=== PATIENT | male | born 1975 | race Caucasian/White ===

== ENCOUNTER 2017-05-25 13:10 | Emergency (ER) | payer SELFPAY ==
[~2017-05-25] VITALS: Ht 185.4 cm; Wt 135.2 kg
[~2017-05-25 13:10] MED LIST: ANTIFUNGAL15 G1 TP; ELIMITE 5% CREA60 GM TP; GEMFIBROZIL600 MG PO; HYDROXYZINE HCL25 MG PO; MEDROL DOSEPAK4 MG PO
[2017-05-25] MEDS ORDERED: VIBRAMYCIN100 MG PO (16:02)
[2017-05-25] MEDS ORDERED: ULTRAM50 MG PO (17:12)
[2017-05-25 17:14] VITALS: BP 129/90
== END 2017-05-25 17:15 | disposition home or self-care (01) ==
LOC: EME 13:10
DX: L05.01 Pilonidal cyst with abscess (principal); S93.602A Unspecified sprain of left foot, initial encounter; V48.4XXA Person boarding or alighting a car injured in noncollision transport accident, initial encounter; F17.200 Nicotine dependence, unspecified, uncomplicated
CPT/HCPCS: 72220; 73630; 99281; 99283

== ENCOUNTER 2017-07-10 | Emergency (ER) | payer SELFPAY ==
[~2017-07-10] VITALS: Ht 185.4 cm; Wt 136.4 kg
[~2017-07-10] MED LIST changes: +ULTRAM50 MG PO; +VIBRAMYCIN100 MG PO
[2017-07-10] MEDS ORDERED: BACTRIM,SEPT1 TABLET PO (00:31)
[2017-07-10 00:47] VITALS: BP 130/78
== END 2017-07-10 00:48 | disposition home or self-care (01) ==
LOC: EME
DX: L02.01 Cutaneous abscess of face (principal)
CPT/HCPCS: 99281; 99283

== ENCOUNTER 2017-12-01 21:01 | Emergency (ER) | payer BC ==
[~2017-12-01] VITALS: Ht 185.4 cm; Wt 122.8 kg
[~2017-12-01 21:01] MED LIST changes: +BACTRIM,SEPT1 TABLET PO
[2017-12-01 21:53] LABS: APPEARANCE CLEAR ((CLEAR)); BILIRUBIN NEGATIVE; BLOOD NEGATIVE; COLOR STRAW ((YELLOW)); GLUCOSE (STRIP) >=500; KETONES NEGATIVE; LEUKOCYTES NEGATIVE; NITRITE NEGATIVE; PROTEIN (STRIP) NEGATIVE; SPECIFIC GRAVITY 1.033 (1.000-1.030); UCUL ADDED? NO; UROBILINOGEN 0.2 MG/DL (0.2-1.0)
[2017-12-01] MEDS ORDERED: CLEOCIN300 MG PO (22:15)
[2017-12-01] MEDS ORDERED: PERCOCET 5/31 TABLET PO (22:15)
[2017-12-01 22:31] VITALS: BP 112/93
== END 2017-12-01 22:32 | disposition home or self-care (01) ==
LOC: EME 21:01
PROC: 0H98XZX Drainage of Buttock Skin, External Approach, Diagnostic (ICD-10-PCS; principal; 2017-12-01)
DX: L05.01 Pilonidal cyst with abscess (principal); Z86.14 Personal history of Methicillin resistant Staphylococcus aureus infection; Z88.0 Allergy status to penicillin
CPT/HCPCS: 81003; 87070; 87075; 87077; 87186; 87205; 99281; 99284

== ENCOUNTER 2017-12-03 19:15 | Inpatient (IN) | payer BC ==
[~2017-12-03] VITALS: Ht 185.4 cm; Wt 120.0 kg
[~2017-12-03 19:15] MED LIST changes: +CLEOCIN300 MG PO; +PERCOCET 5/31 TABLET PO
[2017-12-03 21:33] LABS: BASOPHIL (%) 0.5 % (0-1); EOSINOPHIL (%) 1.5 % (0-5); EOSINOPHIL COUNT 0.1 K/uL (0-0.3); HEMATOCRIT 45.1 % (38.0-50.0); HEMOGLOBIN 15.5 G/DL (12.5-16.6); IMMATURE GRANULOCYTE (%) 0.3 % (0.0-0.7); LYMPHOCYTE (%) 31.8 % (15-42); LYMPHOCYTE COUNT 1.9 K/uL (1.0-2.8); MCH 29.1 PG (29.0-34.0); MCHC 34.4 G/DL (30.0-36.0); MCV 84.6 FL (86-99); MONOCYTE COUNT 0.6 K/uL (0-0.8); NEUTROPHIL (%) 55.9 % (45-76); NEUTROPHIL COUNT 3.3 K/uL (1.8-6.4); PLATELET COUNT 161 K/uL (156-360); RBC DIS.WIDTH-CV 11.7 % (11.8-14.6); RBC DIS.WIDTH-SD 35.7 % (39-53); RED BLOOD COUNT 5.33 M/uL (4.00-5.50); WHITE BLOOD COUNT 5.8 K/uL (4.1-10.2)
[2017-12-03 21:42] LABS: CHLORIDE 93 mEq/L (99-109); POTASSIUM 3.7 mEq/L (3.7-5.4); SODIUM 131 mEq/L (136-147)
[2017-12-03 21:47] LABS: GFR ESTIMATE (CALCULATED) > 59 mL/min/ (58.99-99999)
[2017-12-03 21:48] LABS: UREA NITROGEN (BUN) 7 mg/dL (9-23)
[2017-12-03 21:52] LABS: GLUCOSE 619 mg/dL (70-99)
[2017-12-03] MEDS ORDERED: CLEOCIN300 MG PO (23:14)
[2017-12-04 02:27] VITALS: BP 110/58
[2017-12-04 03:34] LABS: APPEARANCE CLEAR ((CLEAR)); BILIRUBIN NEGATIVE; BLOOD NEGATIVE; COLOR YELLOW ((YELLOW)); GLUCOSE (STRIP) >=500; KETONES 80; LEUKOCYTES NEGATIVE; NITRITE NEGATIVE; PROTEIN (STRIP) NEGATIVE; SPECIFIC GRAVITY 1.039 (1.000-1.030); UROBILINOGEN 0.2 MG/DL (0.2-1.0)
[2017-12-04 07:54] VITALS: BP 100/54
[2017-12-04 16:00] VITALS: BP 126/70
[2017-12-04 23:38] VITALS: BP 120/59
[2017-12-05 06:49] LABS: HEMATOCRIT 42.5 % (38.0-50.0); HEMOGLOBIN 14.1 G/DL (12.5-16.6); MCH 28.5 PG (29.0-34.0); MCHC 33.2 G/DL (30.0-36.0); PLATELET COUNT 167 K/uL (156-360); RBC DIS.WIDTH-CV 11.9 % (11.8-14.6); RBC DIS.WIDTH-SD 37.5 % (39-53); RED BLOOD COUNT 4.94 M/uL (4.00-5.50); WHITE BLOOD COUNT 7.1 K/uL (4.1-10.2)
[2017-12-05 07:15] LABS: ALBUMIN 3.2 G/DL (3.2-4.8); ALKALINE PHOSPHATASE 102 IU/L (3-129); ALT (GPT) 52 IU/L (3-49); AST (GOT) 39 IU/L (2-34); CHLORIDE 101 MEQ/L (99-109); CREATININE 0.6 MG/DL (0.6-1.3); GFR ESTIMATE (CALCULATED) > 59 mL/min/ (58.99-99999); POTASSIUM 3.9 MEQ/L (3.7-5.4); SODIUM 136 MEQ/L (136-147); TOTAL BILIRUBIN 0.6 MG/DL (0.0-1.0); TOTAL PROTEIN 5.4 G/DL (6.4-8.3); UREA NITROGEN (BUN) 7 mg/dL (9-23)
[2017-12-05 07:20] LABS: GLUCOSE 251 mg/dL (70-99)
[2017-12-05 08:32] LABS: HEMOGLOBIN A1c (GLYCOHEMOGLOB) 13.9 % (Below 5.7)
[2017-12-05 08:34] VITALS: BP 106/67
[2017-12-05 16:51] VITALS: BP 110/71
[2017-12-05 23:26] VITALS: BP 110/61
[2017-12-06 06:29] LABS: BASOPHIL (%) 0.7 % (0-1); BASOPHIL COUNT 0.1 K/uL (0-0.1); EOSINOPHIL (%) 2.2 % (0-5); EOSINOPHIL COUNT 0.2 K/uL (0-0.3); HEMATOCRIT 42.8 % (38.0-50.0); HEMOGLOBIN 14.2 G/DL (12.5-16.6); IMMATURE GRANULOCYTE (%) 0.9 % (0.0-0.7); LYMPHOCYTE (%) 41.9 % (15-42); LYMPHOCYTE COUNT 3.2 K/uL (1.0-2.8); MCH 28.3 PG (29.0-34.0); MCHC 33.2 G/DL (30.0-36.0); MCV 85.3 FL (86-99); MONOCYTE (%) 7.3 % (3-12); MONOCYTE COUNT 0.6 K/uL (0-0.8); NEUTROPHIL COUNT 3.6 K/uL (1.8-6.4); PLATELET COUNT 192 K/uL (156-360); RBC DIS.WIDTH-CV 11.9 % (11.8-14.6); RBC DIS.WIDTH-SD 36.9 % (39-53); RED BLOOD COUNT 5.02 M/uL (4.00-5.50); WHITE BLOOD COUNT 7.7 K/uL (4.1-10.2)
[2017-12-06 06:51] LABS: CHLORIDE 102 MEQ/L (99-109); CREATININE 0.6 MG/DL (0.6-1.3); GFR ESTIMATE (CALCULATED) > 59 mL/min/ (58.99-99999); GLUCOSE 245 mg/dL (70-99); POTASSIUM 3.9 MEQ/L (3.7-5.4); SODIUM 139 MEQ/L (136-147); UREA NITROGEN (BUN) 9 mg/dL (9-23)
[2017-12-06 07:10] VITALS: BP 121/63
[2017-12-06] MEDS ORDERED: NYSTATIN100000 UN1 PO (11:04)
[2017-12-06] MEDS ORDERED: FLORASTOR250 MG PO (11:04)
[2017-12-06] MEDS ORDERED: METFORMIN HCL1000 MG PO (11:04)
[2017-12-06] MEDS ORDERED: AUGMENTIN875 MG PO ×2 (11:04→11:35)
[2017-12-06] MEDS ORDERED: LEVEMIR FL100 UNIT/1 SC (11:04)
[2017-12-06] MEDS ORDERED: GLIPIZIDE5 MG PO (11:04)
[2017-12-06] MEDS ORDERED: GLIPIZIDE10 MG PO (11:36)
== END 2017-12-06 15:40 | disposition home or self-care (01) | DRG 603 ==
LOC: EXP 19:15 → EME 19:15 → EDOF 12-04 00:07 → ENRESERV 12-04 00:08 → CANRESERV 12-04 00:08 → EDOF 12-04 00:26 → 5SOUTH 12-04 00:26 → EDOF 12-04 00:26 → ENRESERV 12-04 00:28 → 5SOUTH 12-04 02:25 → ENPENDDIS 12-06 → 5SOUTH 12-06 15:40
PROVIDERS: Internal Medicine; Physician Assistant
PROC: 0H98X0Z Drainage of Buttock Skin with Drainage Device, External Approach (ICD-10-PCS; principal; 2017-12-05)
DX: L05.01 Pilonidal cyst with abscess (principal); E11.9 Type 2 diabetes mellitus without complications; E87.1 Hypo-osmolality and hyponatremia; E86.0 Dehydration; B95.1 Streptococcus, group B, as the cause of diseases classified elsewhere; Z16.39 Resistance to other specified antimicrobial drug; R51 Headache; F17.210 Nicotine dependence, cigarettes, uncomplicated; E66.9 Obesity, unspecified; Z68.34 Body mass index [BMI] 34.0-34.9, adult; Z83.3 Family history of diabetes mellitus
CPT/HCPCS: 70150; 80048; 80053; 81003; 82948; 83036; 83605; 85025; 85027; 87040; 87070; 87075; 87077; 87186; 87205; 94640; 99281; 99284; 99285; J0692; J1644; J1815; J1885; J2270; J3370; J7030; J7120